=== PATIENT | male | born 1975 | race Caucasian/White ===

== ENCOUNTER 2016-11-02 17:44 | Inpatient (IN) | payer BC, OTHER ==
[~2016-11-02] VITALS: Ht 180.3 cm; Wt 132.9 kg
[2016-11-02 17:45] VITALS: BP_SYST 144
--- NOTE | 2016-11-02 17:45 | NUR ---
Patient to ER bed 7 to gown for evaluation. Side rails up. Report given to Ariel TO.
--- NOTE | 2016-11-02 17:54 | NUR ---
ER MD Headley at bedside for evaluation
[2016-11-02] MEDS ORDERED: NACL 0.9% 1,000 ML IV SCH (17:56)
[2016-11-02] MEDS ORDERED: VANCOMYCIN HCL 1,000 MG in NS 250 ML IV ONE (18:00)
[2016-11-02] MEDS ORDERED: PIPERACILLIN/TAZO 3.375 GM in NS 50 ML IV ONE (18:00)
[2016-11-02] MEDS ORDERED: KETOROLAC TROMETHAMINE 30 MG VIAL IVP ONE (18:00)
--- NOTE | 2016-11-02 18:00 | NUR ---
Pt presesnt to Ed c/o LLE pain and swelling w/difficulty ambulating.Pt seen by PMD this AM d/c'd w/ABX. Pt reports worsening symptoms.
[2016-11-02] MEDS ORDERED: SULF1TAB48 PO (18:06)
[2016-11-02] MEDS ORDERED: AMOX-426 PO (18:06)
[2016-11-02] MEDS ORDERED: [UNRECOGNIZED DRUG - CODE] PO (18:06)
--- NOTE | 2016-11-02 18:07 | NUR ---
Medication reconciliation completed with information provided by - list from patient. Any prior medication reconciliation on file was reviewed and corrected.
--- NOTE | 2016-11-02 18:15 | NUR ---
# 20 gauge angiocath placed to LH. Use of asceptic technique. Opsite placed over site. Blood return noted. Blood for lab drawn from site. Flushed with 10 cc of normal saline. No evidence of infiltration noted. Patient tolerated well.
[2016-11-02] MEDS ORDERED: PIPERACILLIN/TAZOBACTAM 3.375 GM/VIAL (ZOSYN) IV ONE ×2 (18:30→22:50)
[2016-11-02] MEDS ORDERED: VANCOMYCIN HCL 1000 MG/VIAL IV ONE (18:30)
--- NOTE | 2016-11-02 18:30 | NUR ---
Pt tolerating medication well. Continuing to monitor. Pt encouraged to give urine specimen.
[2016-11-02] MEDS ORDERED: ONDANSETRON HCL 4 MG/2 ML VIAL IVP ONE (18:45)
[2016-11-02] MEDS ORDERED: ONDANSETRON HCL 4 MG/2 ML VIAL ONE (18:50)
[2016-11-02 18:56] LABS: BASOPHILS % (AUTO) 0.3 % (0.0-2.0); HEMOGLOBIN 14.9 g/dL (14.0-18.0); LYMPHOCYTES # (AUTO) 0.8 K/uL (1.0-5.5); LYMPHOCYTES % (AUTO) 4.9 % (20.5-51.5); MEAN CORPUSCULAR HEMOGLOBIN 29 pg (27-31); MEAN CORPUSCULAR HGB CONC 34 % (32-36); MEAN CORPUSCULAR VOLUME 85 fL (79.0-98.0); MONOCYTES # (AUTO) 1.1 K/uL (0.0-1.0); MONOCYTES % (AUTO) 7.3 % (1.7-9.3); NEUTROPHILS # (AUTO) 13.7 K/uL (1.8-7.7); NEUTROPHILS % (AUTO) 87.5 % (40.0-70.0); PLATELET COUNT (AUTO) 248 K/uL (130-430); RED BLOOD CELL COUNT(AUTO) 5.19 MIL/uL (4.2-6.2); RED CELL DISTRIBUTION WIDTH 13.1 % (9.0-15.0); WHITE BLOOD COUNT (AUTO) 15.6 K/uL (4.8-10.8)
[2016-11-02 19:00] LABS: CALCIUM 8.6 mg/dL (8.4-11.0); CREATININE 1.22 mg/dL (0.55-1.30); POTASSIUM 3.3 mmol/L (3.5-5.1)
[2016-11-02 19:05] LABS: ALBUMIN 3.7 g/dL (3.4-4.8); TOTAL BILIRUBIN 0.8 mg/dL (0.0-1.0); TOTAL PROTEIN, SERUM 7.4 g/dL (6.4-8.3)
[2016-11-02] MEDS ORDERED: NACL 0.9% 1,000 ML IV ONE (19:45)
[2016-11-02] MEDS ORDERED: ACETAMINOPHEN 325 MG TABLET PO SCH (20:00)
[2016-11-02] MEDS ORDERED: PIPERACILLIN/TAZO 3.375 GM in NS 50 ML IV SCH (20:00)
--- NOTE | 2016-11-02 20:10 | NUR ---
Patient will be admitted to care of Dr Christie . Admitted to Medsurg unit. Will go to room 134A. Belongings list completed. Summary report printed. Report given to Admitting RN.
--- NOTE | 2016-11-02 20:19 | NUR ---
ADMISSION NOTE Received patient from ER via neida, received report from RAUL OT. Patient admitted with diagnosis of SEPSIS AND CELLULITIS. Patient oriented to hospital routine, call light, toileting and safety-patient verbalized understanding.
--- NOTE | 2016-11-02 20:21 | NUR ---
initial nursing notes: Patient is awake. Patient has redness on the left leg. According to the patient, he is able to ambulate in spite of having redness on his left leg. Patient has IV access on the left hand.
[2016-11-02 20:24] VITALS: BP_SYST 144
[2016-11-02] MEDS ORDERED: VANCOMYCIN HCL 1,500 MG in NS 250 ML IV SCH (20:30)
--- NOTE | 2016-11-02 20:59 | NUR ---
Consultation Paged Reason for consultation: Cellulitis Was consult called: Yes Person who was notified: Nina Consulting Physician: Dr Jeong; Dr Pink is on-call for Dr Jeong Mortgage Manager Specialty: ID Mortgage Manager
--- NOTE | 2016-11-02 22:05 | NUR ---
Paged Dr. Christie, phone number [phone] spoke with Nora.
[2016-11-02] MEDS: MORPHINE 2 MG/ML INJ. SYRINGE IVP SCH (22:10)
--- NOTE | 2016-11-02 22:20 | NUR ---
nursing rounds: Patient received pain medication for his left leg pain. Patient stated that the pain medication is effective.
[2016-11-03] VITALS: BP_SYST 143
[2016-11-03] MEDS ORDERED: IBUPROFEN 800 MG TABLET PO PRN (00:15)
[2016-11-03] MEDS ORDERED: ONDANSETRON HCL 4 MG/2 ML VIAL IVP PRN (00:15)
--- NOTE | 2016-11-03 00:20 | NUR ---
nursing rounds: Patient is asleep. Patient has no shortness of breath.
--- NOTE | 2016-11-03 02:20 | NUR ---
nursing rounds: Patient has received pain medication PO for his left leg pain. Will reassess patient in about an hour.
--- NOTE | 2016-11-03 03:10 | NUR ---
nursing rounds: Patient is sleeping in bed. Patient has no respiratory distress.
[2016-11-03 04:00] VITALS: BP_SYST 141
--- NOTE | 2016-11-03 05:10 | NUR ---
nursing rounds: Patient calmly resting in bed. Call light within patient's reach.
[2016-11-03 06:45] LABS: BASOPHILS % (AUTO) 0.2 % (0.0-2.0); EOSINOPHILS % (AUTO) 0.3 % (0.0-4.0); HEMATOCRIT 40.4 % (36-54); HEMOGLOBIN 13.7 g/dL (14.0-18.0); LYMPHOCYTES # (AUTO) 1.1 K/uL (1.0-5.5); LYMPHOCYTES % (AUTO) 7.3 % (20.5-51.5); MEAN CORPUSCULAR HEMOGLOBIN 29 pg (27-31); MEAN CORPUSCULAR HGB CONC 34 % (32-36); MEAN CORPUSCULAR VOLUME 84 fL (79.0-98.0); MONOCYTES # (AUTO) 1.1 K/uL (0.0-1.0); MONOCYTES % (AUTO) 7.3 % (1.7-9.3); NEUTROPHILS # (AUTO) 12.4 K/uL (1.8-7.7); NEUTROPHILS % (AUTO) 84.9 % (40.0-70.0); PLATELET COUNT (AUTO) 209 K/uL (130-430); RED CELL DISTRIBUTION WIDTH 13.1 % (9.0-15.0); WHITE BLOOD COUNT (AUTO) 14.6 K/uL (4.8-10.8)
[2016-11-03 06:58] LABS: CALCIUM 8.1 mg/dL (8.4-11.0); CREATININE 1.16 mg/dL (0.55-1.30); POTASSIUM 3.9 mmol/L (3.5-5.1)
--- NOTE | 2016-11-03 06:59 | NUR ---
CALLED ATTENDING MD DR COOLEY, RE: MORE PAIN MEDS FOR LEG PAIN. SPOKE TO MARYANA
--- NOTE | 2016-11-03 07:23 | NUR ---
closing nursing notes: Patient is awake, alert and oriented X 4. Patient is in no acute respiratory distress. No episodes of fall and no injuries throughout the overnight cashier. Provided nursing report to incoming morning shift nurse, ZULEIKA Cunha, at patient's bedside.
--- NOTE | 2016-11-03 07:29 | NUR ---
PUT A SECOND CALL TO DR COOLEY, RE: PAIN MED FOR SEVERE LEG PAIN. SPOKE TO JANE
[2016-11-03] MEDS: MORPHINE 2 MG/ML INJ. SYRINGE IVP SCH ×2 (07:32→13:37)
--- NOTE | 2016-11-03 07:59 | NUR ---
AM Rounds: Pt c/o severe pain to left lower leg. Patient medicated per MD order. Pt tolerates well at this time. IV intact to RUE with no redness or swelling noted to site. at bedside. Continue to monitor.
--- NOTE | 2016-11-03 08:27 | NUR ---
PUT ANOTHER F/U CALL TO DR COOLEY, 3RD CALL, RE: PAIN MEDS. SPOKE TO JANE.
[2016-11-03] MEDS: VANCOMYCIN HCL 1,500 MG in NS 250 ML IV SCH ×2 (08:35→16:32)
[2016-11-03 08:50] VITALS: BP_SYST 131
--- NOTE | 2016-11-03 09:31 | NUR ---
RN Rounds: AM meds given per MD order. Pt tolerates well. Pt denies pain at this time. Call light in reach. Continue to monitor.
[2016-11-03] MEDS: IBUPROFEN 800 MG TABLET PO PRN ×2 (09:46→15:36)
--- NOTE | 2016-11-03 11:34 | NUR ---
IV RE-INSERTION: Complaining of pain to IV site. Restarted on right hand 20G. Successful after [2] attempts. Will observe for any signs of infiltration.
[2016-11-03 12:00] VITALS: BP_SYST 134
--- NOTE | 2016-11-03 13:45 | NUR ---
Rounds: Pt sitting semi-fowlers in bed. No acute signs of distress noted at this time. IV intact to RUE. Pt c/o pain to LLE. Pt medicated per MD order. Call light in reach. Continue to monitor.
[2016-11-03] MEDS ORDERED: PIPERACILLIN/TAZO 3.375 GM in NS 50 ML IV ONE (14:45)
[2016-11-03 16:00] VITALS: BP_SYST 140
--- NOTE | 2016-11-03 16:00 | NUR ---
Dr. Christie Here: Dr. Christie here to see patient. He is aware that pt has c/o pain. Continue to monitor.
[2016-11-03] MEDS: HYDROcodone/ACETAMIN 5-325 MG TAB (NORCO/ VICODIN) PO PRN ×2 (16:39→21:00)
--- NOTE | 2016-11-03 18:27 | NUR ---
Closing Note: Pt sitting semi-fowlers in bed and sleeping. No acute signs of distress noted at this time. IV intact to RUE with no redness or swelling noted to site. Call light in reach. Pt denies pain. at bedside. Endorse plan of care to NOC RN.
[2016-11-03 19:45] VITALS: BP_SYST 142
[2016-11-03] MEDS ORDERED: MORPHINE 2 MG/ML INJ. SYRINGE IVP SCH (20:00)
--- NOTE | 2016-11-03 20:00 | NUR ---
Initial note A/O x 3, no SOB, no chest pain, c/o L leg pain 4/10 but refused pain medication at this time. Clear lung sounds and active bowel sounds. Skin warm to touch, IV at R hand, patent and free of infection or infiltration. Redness and swelling at L leg, warm/hot to touch. +2 radial and pedal pulses. BRP, urinal use. Education (pain management) provided. Call light within reach, will continue to monitor patient.
--- NOTE | 2016-11-03 21:00 | NUR ---
[place] PO given for L leg pain
[2016-11-03] MEDS: PIPERACILLIN/TAZO 3.375 GM in NS 50 ML IV SCH (21:02)
[2016-11-03] MEDS ORDERED: PIPERACILLIN/TAZO 3.375 GM in NS 50 ML IV SCH (22:00)
--- NOTE | 2016-11-03 22:00 | NUR ---
Rounds Resting and playing phone in bed. A/O x 3, no SOB, no chest pain, L leg pain decreased after [place] given. IV at R hand. Redness and swelling at L leg, warm/hot to touch. +2 pedal pulses. Call light within reach, will continue to monitor patient.
[2016-11-04 00:05] VITALS: BP_SYST 152
[2016-11-04] MEDS: VANCOMYCIN HCL 1,500 MG in NS 250 ML IV SCH ×2 (00:26→11:08)
[2016-11-04] MEDS: IBUPROFEN 800 MG TABLET PO PRN (00:32)
--- NOTE | 2016-11-04 00:35 | NUR ---
Rounds Resting and watching TV in bed. A/O x 3, no SOB, no chest pain, c/o L leg pain 5/10, Motrin given. IV at R hand, patent, Zosyn IV given. Redness and swelling at L leg, warm/hot to touch. +2 pedal pulses. Call light within reach, will continue to monitor patient.
--- NOTE | 2016-11-04 02:10 | NUR ---
Rounds Sleeping in bed. A/O x 3, no SOB, no chest pain, no grimacing. IV at R hand, patent. Call light within reach, will continue to monitor patient.
--- NOTE | 2016-11-04 04:00 | NUR ---
Rounds Awake, watching TV in bed. A/O x 3, no SOB, no chest pain, denied pain. IV at R hand, patent. Call light within reach, will continue to monitor patient.
[2016-11-04 04:23] VITALS: BP_SYST 135
[2016-11-04] MEDS: PIPERACILLIN/TAZO 3.375 GM in NS 50 ML IV SCH (05:25)
[2016-11-04] MEDS: HYDROcodone/ACETAMIN 5-325 MG TAB (NORCO/ VICODIN) PO PRN (05:30)
--- NOTE | 2016-11-04 05:30 | NUR ---
[place] PO given for L leg pain.
--- NOTE | 2016-11-04 06:52 | NUR ---
Closing note Awake, resting and watching TV in bed. A/O x 3, no SOB, no chest pain, pain subsided after [place] given. IV at R hand, patent. Call light within reach, will give report to incoming nurse.
[2016-11-04 07:15] LABS: BASOPHILS # (AUTO) 0.1 K/uL (0.0-0.2); BASOPHILS % (AUTO) 0.7 % (0.0-2.0); EOSINOPHILS # (AUTO) 0.1 K/uL (0.0-0.4); EOSINOPHILS % (AUTO) 0.9 % (0.0-4.0); HEMATOCRIT 40.8 % (36-54); HEMOGLOBIN 13.5 g/dL (14.0-18.0); LYMPHOCYTES # (AUTO) 1.2 K/uL (1.0-5.5); LYMPHOCYTES % (AUTO) 8.9 % (20.5-51.5); MEAN CORPUSCULAR HEMOGLOBIN 29 pg (27-31); MEAN CORPUSCULAR HGB CONC 33 % (32-36); MEAN CORPUSCULAR VOLUME 86 fL (79.0-98.0); MONOCYTES % (AUTO) 7.8 % (1.7-9.3); NEUTROPHILS # (AUTO) 10.8 K/uL (1.8-7.7); NEUTROPHILS % (AUTO) 81.7 % (40.0-70.0); PLATELET COUNT (AUTO) 224 K/uL (130-430); RED BLOOD CELL COUNT(AUTO) 4.72 MIL/uL (4.2-6.2); RED CELL DISTRIBUTION WIDTH 13.2 % (9.0-15.0); WHITE BLOOD COUNT (AUTO) 13.2 K/uL (4.8-10.8)
[2016-11-04 07:53] VITALS: BP_SYST 142
--- NOTE | 2016-11-04 08:40 | NUR ---
AM ROUNDS PT A/OX4, DENIES PAIN AT THIS TIME...HL TO LAC FLUSHES WELL...REDNESS AND WARM TO TOUCH TO LEFT LOWER EXTREMITY..PT AMBULATES AD RONDA W/STEADY GAIT...ENCOURAGED PT TO ELEVATE EXTREMITY...CALL LIGHT/PHONE W/IN REACH...WILL CONT TO MONITOR
[2016-11-04] MEDS ORDERED: ZOLPIDEM TARTRATE 5 MG TABLET PO PRN (09:30)
[2016-11-04] MEDS ORDERED: DOCUSATE SODIUM 100 MG CAPSULE PO PRN (09:30)
[2016-11-04] MEDS ORDERED: ONDANSETRON HCL 4 MG/2 ML VIAL IVP PRN (09:30)
[2016-11-04] MEDS ORDERED: LORazepam 2 MG/ML VIAL IVP PRN (09:30)
[2016-11-04] MEDS ORDERED: ACETAMINOPHEN 325 MG TABLET PO PRN (09:30)
[2016-11-04] MEDS ORDERED: POTASSIUM CHLORIDE 10 MEQ TAB.PRT.SR PO PRN (09:30)
[2016-11-04] MEDS ORDERED: MORPHINE 2 MG/ML INJ. SYRINGE IVP PRN (09:30)
[2016-11-04] MEDS ORDERED: MAGNESIUM SULFATE 50 ML IV PRN (09:30)
[2016-11-04] MEDS: BENAZEPRIL HCL 20 MG TABLET (LOTENSIN) PO SCH (10:03)
[2016-11-04] MEDS: amLODIPine BESYLATE 5 MG TABLET PO SCH (10:03)
--- NOTE | 2016-11-04 10:45 | NUR ---
WOUND EVALUATION: Wound Consult received from Dr. Tate. Thank you, Dr. Tate, for the consult. Patient received in a [place] Bed with a mattress, awake, alert, and oriented. Patient is unable to turn independently. Julio Score is a 19. Past Medical History: Hypertension, history of cellulitis in the same area of the left lower extremity as today. Recent Labs: WBC 13.2, RBC 4.72, Hgb 13.5, Hct 40.8, K 3.9, Gluc 133, BUN 11, Creat 1.16, GFR 74, Alb 3.7. Intrinsic factors that delay wound healing: Hypoalbuminemia. Extrinsic factors that delay wound healing: Decreased mobility. Microbiology: Blood Culture x 2 in progress. Wound Assessment: 1) Left Lower Extremity: Erythema, edema, and calor, present on admission. No visible wound bed. No odor, no drainage. Three darkened red areas present, no induration. Erythema has progressed to medial calf per patient (extremity is marked to follow progression/regression of erythema). Recommend: No dressing needed. Continue to monitor site for worsening condition. Elevate affected extremity. Inform Wound Information Specialist if area opens or drains. Perform site check at least q shift. Patient is on antibiotic therapy. Also recommend: Encourage and assist patient as needed with repositioning every 2 hours with pillow support, and off-load pressure areas with pillows for pressure re-distribution. Elevate affected extremity with pillows. Perform skin care and monitor skin integrity Q shift.
[2016-11-04] MEDS: MORPHINE 2 MG/ML INJ. SYRINGE IVP PRN ×2 (11:17→17:21)
[2016-11-04 12:00] VITALS: BP_SYST 138
--- NOTE | 2016-11-04 12:00 | NUR ---
ROUNDS PT STABLE...LYING WITH EYES CLOSED...REFUSED LUNCH. STATES HE HAS NO APPETITE AT THIS TIME...WILL CONT TO MONITOR
--- NOTE | 2016-11-04 14:00 | NUR ---
PATIENT RESTING: Patient resting quietly. No acute distress noted. Vital signs within normal range.
[2016-11-04] MEDS: AMPICILLIN SODIUM/SULBACTAM NA 3 GM in NS 100 ML IV SCH ×3 (15:18→23:43)
[2016-11-04 16:00] VITALS: BP_SYST 133
--- NOTE | 2016-11-04 17:41 | NUR ---
ROUNDS PT COMFORTABLE AT THIS TIME...IV PAIN MEDICATION GIVEN BY COVERING NURSE...WILL MONITOR
--- NOTE | 2016-11-04 18:44 | NUR ---
ROUNDS PT C/O NECK PAIN...HEAT PAD APPLIED...INFORMED PT OF [place] AVAILABLE...NO PAIN AT THIS TIME TO LEFT LOWER LEG ...WILL CONT TO MONITOR
[2016-11-04 20:00] VITALS: BP_SYST 133
--- NOTE | 2016-11-04 20:00 | NUR ---
Initial Note Patient in bed at this time resting, respirations even and unlabored. Patient denies any pain or discomfort at this time. IV site patent with no signs or symptoms of infiltration noted. Redness noted to left lower extremity. Call light in hand. Fall and safety precautions in place. Will continue to monitor.
[2016-11-04] MEDS: HYDROcodone/ACETAMIN 10-325 MG TAB PO PRN (20:23)
--- NOTE | 2016-11-04 20:25 | NUR ---
Shower Patient taking a shower, at bedside.
--- NOTE | 2016-11-04 22:00 | NUR ---
RN ROUNDS Patient in bed at this time resting, respirations even and unlabored. Patient denies any pain or discomfort at this time. Call light in hand. Fall and safety precautions in place. Will continue to monitor.
[2016-11-05] VITALS: BP_SYST 137
--- NOTE | 2016-11-05 00:07 | NUR ---
RN ROUNDS Patient in bed at this time resting, respirations even and unlabored. No acute distresses noted at this time. Vital signs stable. Patient denies any pain or discomfort at this time. Call light in hand. Fall and safety precautions in place. Will continue to monitor.
--- NOTE | 2016-11-05 02:51 | NUR ---
RN ROUNDS Patient in bed at this time resting with eyes closed. Respirations even and unlabored. No acute distress noted at this time. Call light in hand. Fall and safety precautions in place. Will continue to monitor.
[2016-11-05 04:00] VITALS: BP_SYST 141
[2016-11-05] MEDS: AMPICILLIN SODIUM/SULBACTAM NA 3 GM in NS 100 ML IV SCH ×2 (05:07→10:58)
--- NOTE | 2016-11-05 06:59 | NUR ---
Closing Note Patient in bed at this time resting, respirations even and unlabored. No acute distress noted at this time. All due meds given, all needs met. Call light in hand. Fall and safety precautions in place. Will endorse to day shift nurse.
[2016-11-05 07:17] LABS: BASOPHILS % (AUTO) 0.3 % (0.0-2.0); EOSINOPHILS # (AUTO) 0.1 K/uL (0.0-0.4); HEMATOCRIT 39.9 % (36-54); HEMOGLOBIN 13.1 g/dL (14.0-18.0); LYMPHOCYTES # (AUTO) 1.2 K/uL (1.0-5.5); LYMPHOCYTES % (AUTO) 9.1 % (20.5-51.5); MEAN CORPUSCULAR HEMOGLOBIN 28 pg (27-31); MEAN CORPUSCULAR HGB CONC 33 % (32-36); MEAN CORPUSCULAR VOLUME 86 fL (79.0-98.0); MONOCYTES # (AUTO) 1.2 K/uL (0.0-1.0); MONOCYTES % (AUTO) 9.2 % (1.7-9.3); NEUTROPHILS # (AUTO) 10.1 K/uL (1.8-7.7); NEUTROPHILS % (AUTO) 80.4 % (40.0-70.0); PLATELET COUNT (AUTO) 279 K/uL (130-430); RED BLOOD CELL COUNT(AUTO) 4.66 MIL/uL (4.2-6.2); RED CELL DISTRIBUTION WIDTH 13.4 % (9.0-15.0); WHITE BLOOD COUNT (AUTO) 12.6 K/uL (4.8-10.8)
[2016-11-05 07:29] LABS: CALCIUM 8.5 mg/dL (8.4-11.0); CREATININE 0.98 mg/dL (0.55-1.30); POTASSIUM 3.5 mmol/L (3.5-5.1)
--- NOTE | 2016-11-05 07:45 | NUR ---
AM ROUNDS PT A/OX4, DENIES PAIN TO LLE, DOES C/O NECK STIFFNESS/DISCOMFORT...HL TO LAC FLUSHES WELL...REDNESS AND WARM TO TOUCH TO LEFT LOWER EXTREMITY..PT AMBULATES AD RONDA W/STEADY GAIT...ENCOURAGED PT TO ELEVATE EXTREMITY...CALL LIGHT/PHONE W/IN REACH...WILL CONT TO MONITOR
[2016-11-05] MEDS: HYDROcodone/ACETAMIN 10-325 MG TAB PO PRN (08:35)
[2016-11-05] MEDS: amLODIPine BESYLATE 5 MG TABLET PO SCH (08:36)
[2016-11-05] MEDS: BENAZEPRIL HCL 20 MG TABLET (LOTENSIN) PO SCH (08:36)
[2016-11-05] MEDS ORDERED: AMOX-426 PO (09:37)
--- NOTE | 2016-11-05 09:37 | NUR ---
DR MAJANO AT BEDSIDE
[2016-11-05 09:38] VITALS: BP_SYST 151
[2016-11-05 10:45] VITALS: BP_SYST 132
--- NOTE | 2016-11-05 10:54 | NUR ---
PT STABLE..DC ORDER GIVEN PT WILL LEAVE AFTER IV ANTIBIOTIC COMPLETE....WILL CONT TO MONITOR
[2016-11-05 11:11] VITALS: BP_SYST 132
--- NOTE | 2016-11-05 12:10 | NUR ---
D/C Patient Patient given medication reconciliation form and D/C instructions. Exit Care provided. Patient verbalized understanding. MD discussed with patient the results and treatment provided. Pt wheeled to private car accompanied by . Patient in stable condition, ID band removed. IV catheter removed, intact and dressing applied, no active bleeding. Rx of AUGMENTIN, NOR[place] given. Patient educated on pain management. All belongings sent with patient.
== END 2016-11-05 12:10 | disposition home or self-care (01) | DRG 872 ==
LOC: SED 17:44 → SMU 19:48
PROVIDERS: ADMIT Internal Medicine; ATTEND General Practice
DX: A41.9 Sepsis, unspecified organism (principal); L03.116 Cellulitis of left lower limb; Z68.41 Body mass index [BMI] 40.0-44.9, adult; I10 Essential (primary) hypertension; E66.9 Obesity, unspecified; E87.6 Hypokalemia; I89.0 Lymphedema, not elsewhere classified; R00.0 Tachycardia, unspecified; Z79.899 Other long term (current) drug therapy
CPT/HCPCS: 36415; 73590-TC; 80048; 80053; 83605; 83735-TC; 85025; 87040-TC; 93005; 93971; 96361; 96365; 96375; 99291; J0295; J1885; J2270; J2405; J2543; J3370; J7030; J7040; J7050

== ENCOUNTER 2017-09-29 12:22 | Emergency (ER) | payer OTHER ==
[~2017-09-29] VITALS: Ht 172.7 cm; Wt 136.1 kg
[~2017-09-29 12:22] MED LIST: AMOX-426 PO; [UNRECOGNIZED DRUG - CODE] PO
[2017-09-29 12:25] VITALS: BP_SYST 136
[2017-09-29 13:19] LABS: BASOPHILS # (AUTO) 0.1 K/uL (0.0-0.2); BASOPHILS % (AUTO) 0.6 % (0.0-2.0); EOSINOPHILS # (AUTO) 0.1 K/uL (0.0-0.4); EOSINOPHILS % (AUTO) 0.6 % (0.0-4.0); HEMATOCRIT 49.7 % (36-54); LYMPHOCYTES # (AUTO) 0.9 K/uL (1.0-5.5); LYMPHOCYTES % (AUTO) 6.2 % (20.5-51.5); MEAN CORPUSCULAR HEMOGLOBIN 28 pg (27-31); MEAN CORPUSCULAR HGB CONC 32 % (32-36); MEAN CORPUSCULAR VOLUME 86 fL (79.0-98.0); MONOCYTES # (AUTO) 0.6 K/uL (0.0-1.0); MONOCYTES % (AUTO) 4.5 % (1.7-9.3); NEUTROPHILS # (AUTO) 12.4 K/uL (1.8-7.7); NEUTROPHILS % (AUTO) 88.1 % (40.0-70.0); PLATELET COUNT (AUTO) 276 K/uL (130-430); RED BLOOD CELL COUNT(AUTO) 5.77 MIL/uL (4.2-6.2); RED CELL DISTRIBUTION WIDTH 12.2 % (9.0-15.0); WHITE BLOOD COUNT (AUTO) 14.1 K/uL (4.8-10.8)
[2017-09-29 13:38] LABS: CALCIUM 9.1 mg/dL (8.4-11.0); CREATININE 0.83 mg/dL (0.55-1.30); POTASSIUM 3.8 mmol/L (3.5-5.1)
[2017-09-29 13:39] LABS: INR 0.9 (0.80-1.20); PROTHROMBIN TIME 9.5 SECS (9.5-12.5)
[2017-09-29 13:43] LABS: ALBUMIN 4.2 g/dL (3.4-4.8); TOTAL BILIRUBIN 0.6 mg/dL (0.0-1.0)
[2017-09-29 13:53] LABS: BILIRUBIN,URINE NEGATIVE (NEGATIVE); CLARITY/URINE CLEAR (CLEAR); COLOR,URINE YELLOW (YELLOW); GLUCOSE,URINE 3+ (NEGATIVE); KETONES,URINE NEGATIVE (NEGATIVE); LEUKOCYTE ESTERASE ,URINE NEGATIVE (NEGATIVE); NITRITE, URINE NEGATIVE (NEGATIVE); PROTEIN URINE NEGATIVE (NEGATIVE); UROBILINOGEN,URINE 0.2 (0.2-1.0)
[2017-09-29 13:54] LABS: BLOOD, URINE TRACE (NEGATIVE)
[2017-09-29 14:07] LABS: BACTERIA,URINE FEW /HPF (None Seen); WBC,URINE 0-3 /HPF (0-3)
[2017-09-29] MEDS ORDERED: KETOROLAC TROMETHAMINE 30 MG VIAL IVP ONE (14:30)
[2017-09-29] MEDS ORDERED: NACL 0.9% 1,000 ML IV ONE (14:30)
[2017-09-29] MEDS ORDERED: ACETAMINOPHEN 500 MG TABLET PO ONE (16:00)
[2017-09-29 17:00] VITALS: BP_SYST 116
== END 2017-09-29 17:00 | disposition home or self-care (01) ==
LOC: SED 12:22
DX: L03.115 Cellulitis of right lower limb (principal); J11.1 Influenza due to unidentified influenza virus with other respiratory manifestations; E11.9 Type 2 diabetes mellitus without complications; I10 Essential (primary) hypertension; Z79.2 Long term (current) use of antibiotics
CPT/HCPCS: 36415; 80053; 81000; 83605; 85025; 85610; 87040; 96361; 96374; 99284; J1885; J7030